=== PATIENT | female | born 1990 | race Caucasian/White ===

== ENCOUNTER → 2016-06-22 | Outpatient (CLI) | payer OTHER ==
[~2016-06-22] MED LIST: COLACE-DPS100 MG PO; MACROBID100 MG PO; MOTRIN-DPS800 MG PO; PRENATAL VITAM1 EAC6 PO; TYLENOL EXTRA500 M1 PO
== END | disposition home or self-care (01) ==
LOC: RAD.S 15:08
DX: Z36 Encounter for antenatal screening of mother (principal); Z3A.20 20 weeks gestation of pregnancy

== ENCOUNTER 2016-11-05 15:10 | Inpatient (IN) | payer OTHER ==
[2016-11-08] MEDS ORDERED: PRENATAL VITAM1 EAC6 PO (10:57)
[2016-11-08] MEDS ORDERED: COLACE-DPS100 MG PO (10:57)
[2016-11-08] MEDS ORDERED: MACROBID100 MG PO (10:57)
[2016-11-08] MEDS ORDERED: TYLENOL EXTRA500 M1 PO (10:58)
[2016-11-08] MEDS ORDERED: MOTRIN-DPS800 MG PO (10:58)
== END 2016-11-07 11:45 | disposition home or self-care (01) | DRG 774 ==
DX: O48.0 Post-term pregnancy (principal); O75.3 Other infection during labor; O99.02 Anemia complicating childbirth; D64.9 Anemia, unspecified; O99.284 Endocrine, nutritional and metabolic diseases complicating childbirth; E66.3 Overweight; Z68.28 Body mass index [BMI] 28.0-28.9, adult; Z23 Encounter for immunization; Z3A.40 40 weeks gestation of pregnancy; Z37.0 Single live birth